=== PATIENT | male | born 1980 | race Caucasian/White ===

== ENCOUNTER 2017-03-28 19:50 | Emergency (ER) | payer SELFPAY, OTHER | END 2017-03-28 20:06 | disposition left against medical advice (07) | LOC: E/R 19:50 | DX: Z53.21 Procedure and treatment not carried out due to patient leaving prior to being seen by health care provider (principal) ==

== ENCOUNTER 2017-03-29 09:21 | Emergency (ER) | payer OTHER | END 2017-03-29 11:22 | disposition home or self-care (01) | LOC: E/R 09:21 | DX: J02.9 Acute pharyngitis, unspecified (principal); I10 Essential (primary) hypertension; Z87.891 Personal history of nicotine dependence | CPT/HCPCS: 99284 ==